=== PATIENT | male | born 1995 | race Caucasian/White ===

== ENCOUNTER 2016-06-30 17:21 | Emergency (ER) | payer OTHER ==
[~2016-06-30] VITALS: Ht 185.4 cm; Wt 98.0 kg
[2016-06-30 17:32] VITALS: BP 148/83
== END 2016-06-30 18:43 | disposition home or self-care (01) ==
LOC: ED 18:35
DX: S93.491A Sprain of other ligament of right ankle, initial encounter (principal); X58.XXXA Exposure to other specified factors, initial encounter; Y93.89 Activity, other specified; Y92.89 Other specified places as the place of occurrence of the external cause; Y99.8 Other external cause status
CPT/HCPCS: 99284